=== PATIENT | male | born 1950 | race Caucasian/White ===

== ENCOUNTER 2017-08-11 20:49 | Emergency (ER) | payer OTHER ==
[2017-08-11 21:01] VITALS: BP 147/86; PULSE 69; RESP 20; TEMP 98.1; O2SAT 95
--- NOTE | 2017-08-11 21:34 | EDPHY ---
H & P Time Seen by Provider: 08/11/17 21:12 HPI/ROS: CHIEF COMPLAINT: left middle finger laceration HISTORY OF PRESENT ILLNESS: 67-year-old male presents emergency department with a laceration to his left middle finger. Patient is [id number], tetanus is up-to-date, he was using the electric knife to cut meat and sliced the distal tip off of his left middle finger. Sensation intact to light touch, no other complaints. Smoking Status: Former smoker Physical Exam: GEN: Awake, alert, oriented, no acute distress RESP: nl resp effort MSK: Full active range of motion of left middle finger SKIN: distal tip skin avulsion left middle finger, distal fingernail sliced off , no bone or tendon involvement. Constitutional: Initial Vital Signs Temperature (C) 36.7 C 08/11/17 20:58 Heart Rate 69 08/11/17 20:58 Respiratory Rate 20 08/11/17 20:58 Blood Pressure 147/86 H 08/11/17 20:58 O2 Sat (%) 95 08/11/17 20:58 O2 Delivery Mode Room Air Allergies/Adverse Reactions: niacin Allergy (Mild, Verified 08/21/16 22:07) [place] Home Medications: Medication Instructions Recorded CHOLECALCIFEROL [Vitamin D] 400 unit PO DAILY 04/08/13 Completed By Buggy Operator 04/08/13 04/08/13 Etanercept [Enbrel] 25 mg SQ Q7D 04/08/13 Folic Acid/Mv,Fe,Min [Centrum 1 each PO DAILY 04/08/13 Multivitamin Tab Chew] Ibuprofen [Motrin 200 mg (OTC)] 400 mg PO DAILY PRN 04/08/13 Valsartan [Diovan] 160 mg PO DAILY 04/08/13 metFORMIN HCL [Glucophage 500 mg 500 mg PO BID 04/08/13 (RX)] Lipitor 08/11/17 Metoprolol Tartrate 08/11/17 MDM/Departure - MDM Procedures: Left middle finger cleaned by emergency department electroencephalograph technician. Surgifoam placed to help stop the bleeding. Compression dressing placed. - Depart Disposition: Home, Routine, Self-Care Clinical Impression: Avulsion of skin of finger without complication Qualifiers: Encounter type: initial encounter Qualified Code(s): S61.209A - Unspecified open wound of unspecified finger without damage to nail, initial encounter Condition: Good Instructions: Skin Avulsion (ED) Additional Instructions: Elevate your hand for the next 24 hours. Keep dressing clean and dry for 72 hours. Then you may remove, wash as usual, antibiotic ointment, bandaid and splint to protect tip for comfort. Return to the emergency department for significant bleeding through your bandage that does not stop with pressure, fevers, increased pain, redness, any other questions or concerns.
== END 2017-08-11 21:46 | disposition home or self-care (01) ==
DX: S61.203A Unspecified open wound of left middle finger without damage to nail, initial encounter (principal); Z87.891 Personal history of nicotine dependence; W29.1XXA Contact with electric knife, initial encounter; Y99.8 Other external cause status; Y93.89 Activity, other specified